=== PATIENT | female | born 1990 | race Caucasian/White ===

== ENCOUNTER 2016-09-17 08:44 | Emergency (ER) | payer MEDICAID ==
[2016-09-17 09:24] LABS: BASOPHIL % 0.4 % (0-2); PLATELET COUNT 275 x10^3mcL (130-400)
[2016-09-17 09:28] LABS: RED CELL DISTRIBUTION WIDTH 17.9 % (11.5-14.5)
[2016-09-17 09:35] LABS: CALCIUM 8.8 mg/dL (8.5-10.1); CARBON DIOXIDE 27.2 mmol/L (21-32); CHLORIDE SERUM 102 mmol/L (98-107); CREATININE SERUM 0.7 mg/dL (0.6-1.0); GFR1 > 60 mL/min; GLUCOSE SERUM 65 mg/dL (74-106); POTASSIUM SERUM 3.9 mmol/L (3.5-5.1); SODIUM SERUM 140 mmol/L (136-145)
[2016-09-17 09:39] LABS: ALBUMIN 3.8 g/dL (3.4-5.0); ALKALINE PHOSPHATASE 98 U/L (46-116); ALT/SGPT 184 U/L (14-59); AMYLASE 53 U/L (25-115); AST/SGOT 92 U/L (15-37); BILIRUBIN TOTAL 0.3 mg/dL (0.20-1.00); LIPASE 164 IU/L (73-393); TOTAL PROTEIN, SERUM 7.4 g/dL (6.4-8.2)
[2016-09-17 11:09] VITALS: BP 127/81
== END 2016-09-17 11:09 | disposition home or self-care (01) ==
LOC: ED 08:44
PROVIDERS: Specialist
PROC: BF42ZZZ Ultrasonography of Gallbladder (ICD-10-PCS; principal; 2016-09-17)
PROC: 3E033NZ Introduction of Analgesics, Hypnotics, Sedatives into Peripheral Vein, Percutaneous Approach (ICD-10-PCS; 2016-09-17)
PROC: 3E033GC Introduction of Other Therapeutic Substance into Peripheral Vein, Percutaneous Approach (ICD-10-PCS; 2016-09-17)
DX: K80.20 Calculus of gallbladder without cholecystitis without obstruction (principal); E66.9 Obesity, unspecified
CPT/HCPCS: 83880; J1170; J1885; J2405; J7030; Q0092